=== PATIENT | female | born 1990 | race American Indian/Alaskan Native ===

== ENCOUNTER 2017-09-23 16:24 | Emergency (ER) | payer OTHER ==
[2017-09-23] MEDS ORDERED: ZOFRAN IV ONE ×2 (17:20→20:56)
[2017-09-23] MEDS ORDERED: NACL 0.9% 1000 ML 1,000 ML IV ONE (17:20)
--- NOTE | 2017-09-23 17:20 | Emergency Department Report ---
Chief Complaint: Abdominal Pain Stated Complaint: VOMITING/ABDOMINAL PAIN Time Seen by Provider: 09/23/17 17:02 - HPI History of Present Illness: Patient is a 27-year-old female who is presenting with nausea vomiting diarrhea approximately a week. Patient states that there is been a watery diarrhea this been no blood in the diarrhea or vomit. Patient has some crampy generalized abdominal pain. There's been no focal pain. Patient denies fever cough headache bodyache sore throat. Patient also denies any dysuria or vaginal discharge or abnormal bleeding. Patient does state that for the past 2 days she has been dizzy when standing - ROS Review of Systems: Review of systems negative except for those systems in the HPI - Exam Vital Signs: Vital Signs 09/23/17 16:27 Temperature 98.5 F Pulse Rate 79 Respiratory 18 Rate Blood Pressure 110/67 O2 Sat by Pulse 100 Oximetry Physical Exam: Focused physical exam general exam patient is alert and oriented 3 with no acute distress HEENT mucous membranes moist lungs clear to auscultation bilaterally heart normal heart tones abdomen soft nontender nondistended with normal bowel sounds skin no rash neuro exam is grossly normal MSE screening note: Focused history and physical exam performed. Due to findings the following was ordered: Basic labs will be ordered to check for left electrolyte abnormalities x-ray of the abdomen will be ordered to rule out any air-fluid levels consistent with partial small bowel instruction she'll be started on IV fluids and nausea medicines will be given ED Disposition for MSE Condition: Stable Instructions: Abdominal Pain (ED) Referrals: SVITLANA PULIDO MD [Primary Care Provider] - 3-5 Days
[2017-09-23] MEDS ORDERED: PEPCID IV ONE (17:21)
[2017-09-23 17:55] LABS: Basophils % (Auto) 0.5 % (0.0-1.8); Eosinophils % (Auto) 1.2 % (0.0-4.3); Hematocrit 40.3 % (30.3-42.9); Hemoglobin 13.4 gm/dl (10.1-14.3); Mean Corpuscular HGB Conc 33 % (30-34); Mean Corpuscular Hemoglobin 30 pg (28-32); Mean Corpuscular Volume 91 fl (79-97); Platelet Count 291 K/mm3 (140-440); Red Blood Count 4.43 M/mm3 (3.65-5.03); Red Cell Distribution Width 12.9 % (13.2-15.2); White Blood Count 10.5 K/mm3 (4.5-11.0)
[2017-09-23 18:08] LABS: Alanine Aminotransferase 15 units/L (7-56); Albumin 4.2 g/dL (3.9-5); Albumin/Globulin Ratio 1.4 %; Alkaline Phosphatase 44 units/L (35-129); Anion Gap 18 mmol/L; BUN/Creatinine Ratio 19; Blood Urea Nitrogen 13 mg/dL (7-17); Calcium 8.6 mg/dL (8.4-10.2); Carbon Dioxide 23 mmol/L (22-30); Chloride 99.5 mmol/L (98-107); Glucose 88 mg/dL (65-100); Potassium 4.1 mmol/L (3.6-5.0); Sodium 136 mmol/L (137-145); Total Protein 7.1 g/dL (6.3-8.2)
[2017-09-23 18:32] LABS: Bilirubin,Direct < 0.2 mg/dL (0-0.2); Bilirubin,Indirect 0.2 mg/dL
--- NOTE | 2017-09-23 18:47 | XRay Report ---
FINAL REPORT EXAM: XR ABDOMEN 1V AP HISTORY: Abdominal Pain TECHNIQUE: One view of the abdomen PRIORS: None. FINDINGS: The nonspecific intestinal gas is without evidence of distention or obstructive pattern. The colonic fecal content does not appear increased. There is no visceromegaly or mass. No radiographic evidence of definite urinary tract calcification. IMPRESSION: Nonspecific bowel gas pattern without intestinal distention.
--- NOTE | 2017-09-23 19:52 | Emergency Department Report ---
ED N/V/D HPI - General Chief complaint: Abdominal Pain Stated complaint: VOMITING/ABDOMINAL PAIN Time Seen by Provider: 09/23/17 17:02 Source: patient Mode of arrival: Ambulatory Limitations: No Limitations - History of Present Illness Initial comments: Patient is a 27-year-old female who is presenting with nausea vomiting diarrhea approximately a week. Patient states that there is been a watery diarrhea this been no blood in the diarrhea or vomit. Patient has some crampy generalized abdominal pain. There's been no focal pain. Patient denies fever cough headache bodyache sore throat. Patient also denies any dysuria or vaginal discharge or abnormal bleeding. Patient does state that for the past 2 days she has been dizzy when standing MD complaint: nausea, vomiting, abdominal pain Onset/Timin -: week(s) Associated Abdominal Pain: Yes Radiation: none - Related Data Previous Rx's Medication Instructions Recorded Last Taken Type Dicyclomine [Bentyl] 20 mg PO QID 4 Days #12 tablet 09/23/17 Unknown Rx Ondansetron [Zofran Odt] 4 mg PO Q6H PRN 4 Days #16 09/23/17 Unknown Rx tab.rapdis Allergies Allergy/AdvReac Type Severity Reaction Status Date / Time promethazine [From Phenergan] Allergy Hives Verified 09/23/17 16:30 ED Review of Systems ROS: Stated complaint: VOMITING/ABDOMINAL PAIN Other details as noted in HPI Comment: All other systems reviewed and negative Constitutional: no symptoms reported Respiratory: no symptoms reported ED Past Medical Hx - Past Medical History Previous Medical History?: No - Surgical History Past Surgical History?: No - Social History Smoking Status: Never Smoker Substance Use Type: None - Medications Home Medications: Home Medications Medication Instructions Recorded Confirmed Last Taken Type Dicyclomine [Bentyl] 20 mg PO QID 4 Days #12 tablet 09/23/17 Unknown Rx Ondansetron [Zofran Odt] 4 mg PO Q6H PRN 4 Days #16 09/23/17 Unknown Rx tab.rapdis ED Physical Exam - General Limitations: No Limitations ED Course Vital Signs 09/23/17 16:27 Temperature 98.5 F Pulse Rate 79 Respiratory 18 Rate Blood Pressure 110/67 O2 Sat by Pulse 100 Oximetry - Reevaluation(s) Reevaluation #1: 09/23/17 20:55 Patient given Pepcid 20 mg IV, IV fluid normal saline 1 L, Zofran 4 mg IV and emergency room. She still remains nauseated. I'll give her another 4 mg of Zofran IV prior to discharge ED Medical Decision Making - Lab Data Result diagrams: 09/23/17 17:36 09/23/17 17:35 Lab Results 09/23/17 09/23/17 09/23/17 Range/Units 17:31 17:35 17:36 WBC 10.5 (4.5-11.0) K/mm3 RBC 4.43 (3.65-5.03) M/mm3 Hgb 13.4 (10.1-14.3) gm/dl Hct 40.3 (30.3-42.9) % MCV 91 (79-97) fl MCH 30 (28-32) pg MCHC 33 (30-34) % RDW 12.9 L (13.2-15.2) % Plt Count 291 (140-440) K/mm3 Lymph % (Auto) 28.5 (13.4-35.0) % [place] % (Auto) 7.7 H (0.0-7.3) % Eos % (Auto) 1.2 (0.0-4.3) % Baso % (Auto) 0.5 (0.0-1.8) % Lymph # 3.0 (1.2-5.4) K/mm3 [place] # 0.8 (0.0-0.8) K/mm3 Eos # 0.1 (0.0-0.4) K/mm3 Baso # 0.0 (0.0-0.1) K/mm3 Seg Neutrophils % 62.1 (40.0-70.0) % Seg Neutrophils # 6.5 (1.8-7.7) K/mm3 Sodium 136 L (137-145) mmol/L Potassium 4.1 (3.6-5.0) mmol/L Chloride 99.5 (98-107) mmol/L Carbon Dioxide 23 (22-30) mmol/L Anion Gap 18 mmol/L BUN 13 (7-17) mg/dL Creatinine 0.7 (0.7-1.2) mg/dL Estimated GFR > 60 ml/min BUN/Creatinine Ratio 19 % Glucose 88 (65-100) mg/dL Calcium 8.6 (8.4-10.2) mg/dL Total Bilirubin 0.40 (0.1-1.2) mg/dL Direct Bilirubin < 0.2 (0-0.2) mg/dL Indirect Bilirubin 0.2 mg/dL AST 15 (5-40) units/L ALT 15 (7-56) units/L Alkaline Phosphatase 44 (35-129) units/L Total Protein 7.1 (6.3-8.2) g/dL Albumin 4.2 (3.9-5) g/dL Albumin/Globulin Ratio 1.4 % HCG, Qual Negative (Negative) Urine Color (Yellow) Urine Turbidity (Clear) Urine pH (5.0-7.0) Ur Specific [place] (1.003-1.030) Urine Protein (Negative) mg/dL Urine Glucose (UA) (Negative) mg/dL Urine Ketones (Negative) mg/dL Urine Blood (Negative) Urine Nitrite (Negative) Urine Bilirubin (Negative) Urine Urobilinogen (<2.0) mg/dL Ur Leukocyte Esterase (Negative) Urine WBC (Auto) (0.0-6.0) /HPF Urine RBC (Auto) (0.0-6.0) /HPF U Epithel Cells (Auto) (0-13.0) /HPF Urine Mucus /HPF // Range/Units 18:41 WBC (4.5-11.0) K/mm3 RBC (3.65-5.03) M/mm3 Hgb (10.1-14.3) gm/dl Hct (30.3-42.9) % MCV (79-97) fl MCH (28-32) pg MCHC (30-34) % RDW (13.2-15.2) % Plt Count (140-440) K/mm3 Lymph % (Auto) (13.4-35.0) % [place] % (Auto) (0.0-7.3) % Eos % (Auto) (0.0-4.3) % Baso % (Auto) (0.0-1.8) % Lymph # (1.2-5.4) K/mm3 [place] # (0.0-0.8) K/mm3 Eos # (0.0-0.4) K/mm3 Baso # (0.0-0.1) K/mm3 Seg Neutrophils % (40.0-70.0) % Seg Neutrophils # (1.8-7.7) K/mm3 Sodium (137-145) mmol/L Potassium (3.6-5.0) mmol/L Chloride (98-107) mmol/L Carbon Dioxide (22-30) mmol/L Anion Gap mmol/L BUN (7-17) mg/dL Creatinine (0.7-1.2) mg/dL Estimated GFR ml/min BUN/Creatinine Ratio % Glucose (65-100) mg/dL Calcium (8.4-10.2) mg/dL Total Bilirubin (0.1-1.2) mg/dL Direct Bilirubin (0-0.2) mg/dL Indirect Bilirubin mg/dL AST (5-40) units/L ALT (7-56) units/L Alkaline Phosphatase (35-129) units/L Total Protein (6.3-8.2) g/dL Albumin (3.9-5) g/dL Albumin/Globulin Ratio % HCG, Qual (Negative) Urine Color Yellow (Yellow) Urine Turbidity Clear (Clear) Urine pH 5.0 (5.0-7.0) Ur Specific [place] 1.024 (1.003-1.030) Urine Protein <15 mg/dl (Negative) mg/dL Urine Glucose (UA) Neg (Negative) mg/dL Urine Ketones Neg (Negative) mg/dL Urine Blood Neg (Negative) Urine Nitrite Neg (Negative) Urine Bilirubin Neg (Negative) Urine Urobilinogen < 2.0 (<2.0) mg/dL Ur Leukocyte Esterase Neg (Negative) Urine WBC (Auto) 1.0 (0.0-6.0) /HPF Urine RBC (Auto) 1.0 (0.0-6.0) /HPF U Epithel Cells (Auto) 5.0 (0-13.0) /HPF Urine Mucus Few /HPF - Radiology Data Radiology results: report reviewed Abdominal x-ray with nonspecific bowel gas pattern without intestinal distention. Critical care attestation.: If time is entered above; I have spent that time in minutes in the direct care of this critically ill patient, excluding procedure time. ED Disposition Clinical Impression: Nausea and vomiting in adult Abdominal pain Qualifiers: Abdominal location: generalized Qualified Code(s): R10.84 - Generalized abdominal pain Disposition: DC-01 TO HOME OR SELFCARE Is pt being admited?: No Does the pt Need Aspirin: No Condition: Stable Instructions: Abdominal Pain (ED), Acute Nausea and Vomiting (ED) Additional Instructions: Please follow up with [facility] in 3-5 days to manage chronic abdominal pain Discharge instructions of nausea and vomiting and abdominal pain Take Medication as prescribed. Rest and increasing fluid intake Prescriptions: Dicyclomine [Bentyl] 20 mg PO QID 4 Days #12 tablet Ondansetron [Zofran Odt] 4 mg PO Q6H PRN 4 Days #16 tab.rapdis PRN Reason: Nausea And Vomiting Referrals: [facility] [Outside] - 3-5 Days Forms: Accompanied Note, Work/School Release Form(ED)
[2017-09-23 19:54] LABS: Bilirubin,Urine NEG (Negative); Blood,Urine NEG (Negative); Ketones,Urine NEG (Negative); Leukocyte Esterase,Urine NEG (Negative); Mucus,Urine FEW /HPF; Nitrite,Urine NEG (Negative); Protein,Urine <15 mg/dL mg/dL (Negative); Urobilinogen,Urine < 2.0 mg/dL (<2.0)
[2017-09-23 21:13] VITALS: BP 111/53
== END 2017-09-23 21:14 | disposition home or self-care (01) ==
LOC: ED 16:24
DX: R11.2 Nausea with vomiting, unspecified (principal); R10.84 Generalized abdominal pain; R19.7 Diarrhea, unspecified; Z88.8 Allergy status to other drugs, medicaments and biological substances
CPT/HCPCS: 36415; 74000; 80048; 80074; 81001; 84703; 85025; 96361; 96374; 96375; 96376; 99284; J2405; J7030